=== PATIENT | female | born 1990 | race Caucasian/White ===

== ENCOUNTER 2017-02-25 00:22 | Emergency (ER) | payer SELFPAY ==
[~2017-02-25] VITALS: Ht 149.9 cm; Wt 81.6 kg
[2017-02-25 00:55] VITALS: BP 112/63
--- NOTE | 2017-02-25 03:33 | NUR ---
PATIENT LEFT WITHOUT BEING SEEN BY DR. BROWN. NO FURTHER CARE PROVIDED FOR PATIENT.
== END 2017-02-25 03:33 | disposition left against medical advice (07) ==
LOC: MED 00:22
DX: O26.891 Other specified pregnancy related conditions, first trimester (principal); R10.9 Unspecified abdominal pain; Z3A.01 Less than 8 weeks gestation of pregnancy; Z53.21 Procedure and treatment not carried out due to patient leaving prior to being seen by health care provider
CPT/HCPCS: 81025

== ENCOUNTER 2017-06-19 18:15 | Observation (INO) | payer SELFPAY ==
[~2017-06-19] VITALS: Ht 121.9 cm; Wt 83.9 kg
[2017-06-19 19:06] VITALS: BP 100/64
== END 2017-06-19 22:35 | disposition home or self-care (01) ==
LOC: MLD 18:15
PROVIDERS: ADMIT Obstetrics & Gynecology; ATTEND Obstetrics & Gynecology
DX: O26.892 Other specified pregnancy related conditions, second trimester (principal); R10.2 Pelvic and perineal pain; Z3A.22 22 weeks gestation of pregnancy
CPT/HCPCS: 76805; G0378

== ENCOUNTER 2022-03-16 21:45 | Emergency (ER) | payer MEDICAID ==
[~2022-03-16] VITALS: Ht 149.9 cm; Wt 88.5 kg
[2022-03-16 22:07] VITALS: BP 107/73
[2022-03-16] MEDS ORDERED: TAM75 PO (23:54)
[2022-03-17 00:30] VITALS: BP 111/68
== END 2022-03-17 00:30 | disposition home or self-care (01) ==
LOC: MED 21:45
DX: U07.1 COVID-19 (principal); J10.1 Influenza due to other identified influenza virus with other respiratory manifestations; Z79.899 Other long term (current) drug therapy
CPT/HCPCS: 99283